=== PATIENT | female | born 1945 | race Caucasian/White ===

== ENCOUNTER → 2016-09-09 | Outpatient (CLI) | payer MEDICARE, BC ==
[2015-07-25 08:55] VITALS: BP 150/89
[~2016-09-09] MED LIST: AMIT25TA PO; CHOL500021 PO; CIPR250T30 PO; CIPR500T PO; CIPR500T94 PO; DEXL60CA; DEXL60CA PO; FENO135C PO; FENO135C2; FOLI0.8T2 PO; HYDR-2666 PO; HYDR-963 PO; HYDR-971 PO; IBUP200T43 PO; LACT1CAP29 PO; LEVO100T PO; LEVO100T5 PO; MELO7.5T5 PO; METO25TA9 PO; METR250T PO; METR500T PO; METR500T4 PO; ONDA4TAB10 SL; PROM25AM6 IJ; SIMV20TA3 PO; TIZANIDINE HCL2 M1 PO; TRAM-29 PO; ZOLP10TA PO; ZOLP5TAB PO
--- NOTE | 2016-09-09 17:20 | RAD ---
DATE: 09/09/2016 EXAM: MAMMO SCOTT SCREENING BILATERAL HISTORY: Routine screening COMPARISON: 01/01/2010, 07/20/2013 This study was interpreted with the benefit of Computerized Aided Detection (CAD). FINDINGS: 2-D and 3-D tomosynthesis imaging was performed in CC and MLO projections. There are scattered fibroglandular densities in the breasts which are unchanged. These include a small triangular shaped density in the anterolateral aspect of the left breast which is unchanged since multiple previous studies. There is a small unchanged lymph node type density in the axillary tail region of the left breast. No new or enlarging breast densities are seen. Multiple benign type calcifications are present. No suspicious microcalcifications have developed. IMPRESSION: Stable mammograms without evidence of malignancy. BI-RADS CATEGORY: 2 BENIGN FINDING(S) RECOMMENDED FOLLOW-UP: 12M 12 MONTH FOLLOW-UP PQRS compliance statement: Patient information was entered into a reminder system with a target due date for the next mammogram. Mammography is a sensitive method for finding small breast cancers, but it does not detect them all and is not a substitute for careful clinical examination. A negative mammogram does not negate a clinically suspicious finding and should not result in delay in biopsying a clinically suspicious abnormality. "Our facility is accredited by the [employer] Mammography Program."
== END | disposition home or self-care (01) ==
LOC: MAMMO 09:48
PROVIDERS: ATTEND Nurse Practitioner Family
DX: Z12.31 Encounter for screening mammogram for malignant neoplasm of breast (principal)
CPT/HCPCS: 77063; G0202; 77067